=== PATIENT | male | born 1930 | race Caucasian/White ===

== ENCOUNTER 2017-12-26 14:12 | Emergency (ER) | payer MEDICARE ==
[~2017-12-26 14:12] MED LIST: ATEN25TA PO; CYCL10TA7 PO; FURO20TA4 PO; GABA-531 PO; GLIP5TAB11 PO; LEVO25TA54 PO; METO5TAB7 PO; ONDA4TAB4 PO; PANT40TA25 PO; RAMI10CA23 PO; RIVA20TA PO; ZOLP5TAB8 PO
[2017-12-26 14:43] LABS: BASOPHILS % (AUTO) 0.2 % (0.0-5.0); EOSINOPHILS % (AUTO) 0.6 % (0.0-8.0); HEMATOCRIT 37.5 % (42-54); LYMPHOCYTES % (AUTO) 4.2 % (21.0-51.0); MEAN CORPUSCULAR HEMOGLOBIN 30.4 pg (27.0-33.0); MEAN CORPUSCULAR HGB CONC 33.4 g/dL (32.0-36.0); MEAN CORPUSCULAR VOLUME 90.9 fL (79-99); PLATELET COUNT (AUTO) 191 K/uL (130-400); RED BLOOD CELL COUNT(AUTO) 4.13 MIL/uL (4.50-6.20); RED CELL DISTRIBUTION WIDTH 13.6 % (11.0-15.5); WHITE BLOOD COUNT (AUTO) 7.8 K/uL (4.8-10.8)
[2017-12-26 14:49] LABS: POTASSIUM 3.5 mmol/L (3.5-5.1)
[2017-12-26 14:53] LABS: INR 1.34 (0.85-1.15); PARTIAL THROMBOPLASTIN TIME 37.1 SEC (26.3-35.5)
[2017-12-26 14:55] LABS: ALBUMIN 3.3 g/dL (3.5-5.0); BILIRUBIN,TOTAL 0.5 mg/dL (0.2-1.0); TOTAL PROTEIN, SERUM 6.6 g/dL (6.0-8.3)
== END 2017-12-26 16:25 | disposition home or self-care (01) ==
LOC: EDH 14:12
DX: S00.03XA Contusion of scalp, initial encounter (principal); I10 Essential (primary) hypertension; E78.5 Hyperlipidemia, unspecified; E07.9 Disorder of thyroid, unspecified; I48.91 Unspecified atrial fibrillation; E11.9 Type 2 diabetes mellitus without complications; Z88.6 Allergy status to analgesic agent; Z88.1 Allergy status to other antibiotic agents; W18.39XA Other fall on same level, initial encounter; Y93.01 Activity, walking, marching and hiking; Y92.89 Other specified places as the place of occurrence of the external cause; Y99.8 Other external cause status
CPT/HCPCS: 36415; 70450; 72125; 80053; 82550; 84484; 85025; 85610; 85730; 93005

== ENCOUNTER 2018-03-10 08:01 | Inpatient (IN) | payer MEDICARE ==
[~2018-03-10] VITALS: Ht 175.3 cm; Wt 78.2 kg
[2018-03-10] MEDS ORDERED: CEFTRIAXONE SODIUM 2 GM VIAL ONE (08:35)
[2018-03-10] MEDS ORDERED: SODIUM CHLORIDE 0.9% 1000ML 1,000 ML IV ONE ×2 (08:35→13:59)
[2018-03-10] MEDS ORDERED: ACETAMINOPHEN EXTRA STRENGTH 500 MG TABLET ONE (08:35)
[2018-03-10] MEDS ORDERED: ONDANSETRON HCL MDV 20ML 2 MG/ML VIAL ONE (08:35)
[2018-03-10 08:47] LABS: BASOPHILS % (AUTO) 0.1 % (0.0-5.0); EOSINOPHILS % (AUTO) 0.1 % (0.0-8.0); HEMATOCRIT 37.8 % (42-54); LYMPHOCYTES % (AUTO) 2.5 % (21.0-51.0); MEAN CORPUSCULAR HEMOGLOBIN 29.5 pg (27.0-33.0); MEAN CORPUSCULAR HGB CONC 33.3 g/dL (32.0-36.0); MEAN CORPUSCULAR VOLUME 88.6 fL (79-99); MONOCYTES % (AUTO) 8.7 % (3.0-13.0); NEUTROPHILS % (AUTO) 88.6 % (40.0-77.0); PLATELET COUNT (AUTO) 158 K/uL (130-400); RED BLOOD CELL COUNT(AUTO) 4.27 MIL/uL (4.50-6.20); RED CELL DISTRIBUTION WIDTH 13.5 % (11.0-15.5); WHITE BLOOD COUNT (AUTO) 9.2 K/uL (4.8-10.8)
[2018-03-10 08:48] LABS: POTASSIUM 3.9 mmol/L (3.5-5.1)
[2018-03-10 08:51] LABS: INR 1.05 (0.85-1.15); PARTIAL THROMBOPLASTIN TIME 28.7 SEC (26.3-35.5)
[2018-03-10 09:17] LABS: APPEARANCE,URINE Clear (CLEAR); BILIRUBIN,URINE Negative (NEGATIVE); COLOR,URINE Yellow (YELLOW); GLUCOSE, URINE (UA) Negative (NEGATIVE); KETONES,URINE Negative (NEGATIVE); LEUKOCYTE ESTERASE ,URINE Negative (NEGATIVE); NITRATE,URINE Negative (NEGATIVE); OCCULT BLOOD,URINE Negative (NEGATIVE); PROTEIN,URINE Negative (NEGATIVE)
[2018-03-10] MEDS ORDERED: VANCOMYCIN 1.25 GM in SODIUM CHLORIDE 0.9% 250 ML IV SCH (10:00)
[2018-03-10] MEDS ORDERED: ACETAMINOPHEN-CODEINE 300/30MG TAB PO PRN (11:45)
[2018-03-10] MEDS ORDERED: MORPHINE SULFATE 2 MG/ML 1ML SYG IV PRN (11:45)
[2018-03-10] MEDS ORDERED: MAG HYDROX/AL HYDROX/SIMETH ES 30 ML SUSP UDCUP PO PRN (11:45)
[2018-03-10] MEDS: METRONIDAZOLE 500MG/100ML BAG 100 ML IV SCH (11:45)
[2018-03-10] MEDS ORDERED: ONDANSETRON HCL 4 MG/2 ML VIAL IV PRN (11:45)
[2018-03-10] MEDS ORDERED: GUAIFENESIN-DM 200/20 MG 10 ML PO PRN (11:45)
[2018-03-10] MEDS ORDERED: ACETAMINOPHEN 325 MG TAB PO PRN ×2 (11:45)
[2018-03-10] MEDS ORDERED: MEROPENEM 500MG+NS 50ML 50 ML IV SCH (11:45)
[2018-03-10] MEDS: MEROPENEM 500 MG VIAL IVP SCH ×2 (12:00→20:00)
[2018-03-10 12:46] LABS: ALBUMIN 3.3 g/dL (3.5-5.0); BILIRUBIN,DIRECT 0.2 mg/dL (0.0-0.3); BILIRUBIN,TOTAL 0.6 mg/dL (0.2-1.0); TOTAL PROTEIN, SERUM 6.3 g/dL (6.0-8.3)
[2018-03-10] MEDS ORDERED: MEROPENEM 500 MG VIAL ONE ×2 (13:58→22:37)
[2018-03-10] MEDS ORDERED: SODIUM CHLORIDE 0.9% 50 ML IV ONE (13:59)
[2018-03-10] MEDS ORDERED: METRONIDAZOLE 500MG/100ML BAG 100 ML ONE (15:14)
[2018-03-10] MEDS: SODIUM CHLORIDE 0.9% 1000ML 1,000 ML IV SCH (21:43)
[2018-03-10 23:15] VITALS: BP 145/53
[2018-03-11] MEDS: SODIUM CHLORIDE 0.9% 1000ML 1,000 ML IV SCH (00:06)
[2018-03-11] MEDS: METRONIDAZOLE 500MG/100ML BAG 100 ML IV SCH ×4 (00:06→20:30)
[2018-03-11] MEDS ORDERED: POTA10TA14 PO (02:05)
[2018-03-11 03:48] VITALS: BP 86/56
[2018-03-11] MEDS: MEROPENEM 500 MG VIAL IVP SCH ×3 (04:11→20:30)
[2018-03-11 06:03] LABS: HEMATOCRIT 30.4 % (42-54); MEAN CORPUSCULAR HEMOGLOBIN 31.3 pg (27.0-33.0); MEAN CORPUSCULAR HGB CONC 35.4 g/dL (32.0-36.0); MEAN CORPUSCULAR VOLUME 88.4 fL (79-99); PLATELET COUNT (AUTO) 133 K/uL (130-400); RED BLOOD CELL COUNT(AUTO) 3.44 MIL/uL (4.50-6.20); RED CELL DISTRIBUTION WIDTH 13.6 % (11.0-15.5); WHITE BLOOD COUNT (AUTO) 8.7 K/uL (4.8-10.8)
[2018-03-11 06:08] LABS: CREATININE 1.1 mg/dL (0.5-1.5); POTASSIUM 3.7 mmol/L (3.5-5.1)
[2018-03-11 08:00] VITALS: BP 100/51
[2018-03-11] MEDS: PANTOPRAZOLE SODIUM 40 MG TABLET.DR PO SCH (08:55)
[2018-03-11] MEDS ORDERED: DEXTROSE 50%-WATER 50 ML DISP.SYRIN IV PRN (09:45)
[2018-03-11] MEDS ORDERED: GLUCAGON 1MG KIT 1 MG ML IM PRN (09:45)
[2018-03-11] MEDS ORDERED: GABAPENTIN 300 MG CAPSULE PO PRN (10:30)
[2018-03-11] MEDS: INSULIN HUMULIN R 100 UNIT/ML 3ML SQ SCH ×3 (11:30→20:58)
[2018-03-11 12:00] VITALS: BP 101/56
[2018-03-11 16:00] VITALS: BP 85/56
[2018-03-11 19:55] VITALS: BP 108/59
[2018-03-11] MEDS: ZOLPIDEM TARTRATE 5 MG TAB PO SCH (20:30)
[2018-03-11] MEDS: CYCLOBENZAPRINE HCL 10 MG TABLET PO SCH (20:31)
[2018-03-11 23:20] VITALS: BP 97/57
[2018-03-12] MEDS: METRONIDAZOLE 500MG/100ML BAG 100 ML IV SCH ×3 (03:45→19:30)
[2018-03-12] MEDS: MEROPENEM 500 MG VIAL IVP SCH ×3 (03:45→19:30)
[2018-03-12 04:22] VITALS: BP 105/59
[2018-03-12] MEDS: INSULIN HUMULIN R 100 UNIT/ML 3ML SQ SCH ×4 (06:05→21:00)
[2018-03-12] MEDS: LEVOTHYROXINE 25 MCG TABLET PO SCH (06:36)
[2018-03-12 07:58] VITALS: BP 144/71
[2018-03-12] MEDS: RIVAROXABAN 20 MG TABLET PO SCH (08:24)
[2018-03-12] MEDS: LISINOPRIL 40 MG TABLET PO SCH (08:26)
[2018-03-12] MEDS: PANTOPRAZOLE SODIUM 40 MG TABLET.DR PO SCH (08:26)
[2018-03-12] MEDS: ATENOLOL 25 MG TABLET PO SCH (08:27)
[2018-03-12] MEDS: GLIPIZIDE 5 MG TABLET PO SCH (08:27)
[2018-03-12] MEDS: FUROSEMIDE 20 MG TABLET PO SCH (08:28)
[2018-03-12] MEDS: POTASSIUM CHLORIDE 10 MEQ/TAB.SA PO SCH (08:28)
[2018-03-12] MEDS ORDERED: LOPERAMIDE HCL 2 MG CAP PO PRN (10:00)
[2018-03-12 10:15] LABS: HEMATOCRIT 32.7 % (42-54); MEAN CORPUSCULAR HEMOGLOBIN 30.1 pg (27.0-33.0); MEAN CORPUSCULAR HGB CONC 34.2 g/dL (32.0-36.0); MEAN CORPUSCULAR VOLUME 88.2 fL (79-99); NUCLEATED RED BLOOD CELLS 0.1 % (0.0-0.19); PLATELET COUNT (AUTO) 130 K/uL (130-400); RED BLOOD CELL COUNT(AUTO) 3.71 MIL/uL (4.50-6.20); RED CELL DISTRIBUTION WIDTH 13.5 % (11.0-15.5); WHITE BLOOD COUNT (AUTO) 6.1 K/uL (4.8-10.8)
[2018-03-12 12:00] VITALS: BP 122/61
[2018-03-12 16:00] VITALS: BP 116/77
[2018-03-12] MEDS: LOPERAMIDE HCL 2 MG CAP PO PRN (18:05)
[2018-03-12 19:58] VITALS: BP 126/72
[2018-03-12] MEDS: CYCLOBENZAPRINE HCL 10 MG TABLET PO SCH (21:20)
[2018-03-12] MEDS: ZOLPIDEM TARTRATE 5 MG TAB PO SCH (21:20)
[2018-03-13 00:01] VITALS: BP 128/90
[2018-03-13] MEDS: LOPERAMIDE HCL 2 MG CAP PO PRN (01:25)
[2018-03-13] MEDS: MEROPENEM 500 MG VIAL IVP SCH ×2 (03:47→11:49)
[2018-03-13] MEDS: METRONIDAZOLE 500MG/100ML BAG 100 ML IV SCH ×2 (03:47→11:49)
[2018-03-13 04:03] VITALS: BP 131/70
[2018-03-13] MEDS: INSULIN HUMULIN R 100 UNIT/ML 3ML SQ SCH ×2 (06:03→11:30)
[2018-03-13] MEDS: LEVOTHYROXINE 25 MCG TABLET PO SCH (06:43)
[2018-03-13 08:00] VITALS: BP 119/66
[2018-03-13] MEDS: GLIPIZIDE 5 MG TABLET PO SCH (09:03)
[2018-03-13] MEDS: LISINOPRIL 40 MG TABLET PO SCH (09:03)
[2018-03-13] MEDS: RIVAROXABAN 20 MG TABLET PO SCH (09:03)
[2018-03-13] MEDS: ATENOLOL 25 MG TABLET PO SCH (09:04)
[2018-03-13] MEDS: FUROSEMIDE 20 MG TABLET PO SCH (09:04)
[2018-03-13] MEDS: POTASSIUM CHLORIDE 10 MEQ/TAB.SA PO SCH (09:05)
[2018-03-13] MEDS: PANTOPRAZOLE SODIUM 40 MG TABLET.DR PO SCH (09:05)
[2018-03-13] MEDS ORDERED: METR500T PO (10:05)
[2018-03-13] MEDS ORDERED: DOXY100T2 PO (10:05)
[2018-03-13 12:00] VITALS: BP 126/71
== END 2018-03-13 13:50 | disposition home or self-care (01) | DRG 391 ==
LOC: EDH 08:01 → OBSVTOIN 11:43 → EDHIP 11:43 → 3AH 22:28
PROVIDERS: ADMIT Family Medicine; ATTEND Family Medicine
DX: K52.9 Noninfective gastroenteritis and colitis, unspecified (principal); J18.9 Pneumonia, unspecified organism; D68.69 Other thrombophilia; E11.69 Type 2 diabetes mellitus with other specified complication; I48.2 Chronic atrial fibrillation; I48.91 Unspecified atrial fibrillation; I10 Essential (primary) hypertension; E03.9 Hypothyroidism, unspecified; E78.5 Hyperlipidemia, unspecified; K21.9 Gastro-esophageal reflux disease without esophagitis; Z79.01 Long term (current) use of anticoagulants; Z88.8 Allergy status to other drugs, medicaments and biological substances; Z82.49 Family history of ischemic heart disease and other diseases of the circulatory system
CPT/HCPCS: 36415; 71045; 71250; 74176; 80048; 80076; 81003; 82948; 83605; 84484; 85025; 85027; 85610; 85730; 87040; 87046; 87177; 87324; 87804; 93005; A4218; J0696; J1815; J2185; J3370; J3490; J7030

== ENCOUNTER 2018-04-12 05:39 | Day surgery (SDC) | payer MEDICARE ==
[~2018-04-12] VITALS: Ht 170.2 cm; Wt 74.6 kg
[~2018-04-12 05:39] MED LIST changes: +POTA10TA14 PO
[2018-04-12] MEDS ORDERED: SODIUM CHLORIDE 0.9% 1000ML 1,000 ML IV ONE (05:51)
[2018-04-12 06:10] VITALS: BP 101/64
[2018-04-12 07:26] VITALS: BP 81/49
== END 2018-04-12 08:09 | disposition home or self-care (01) ==
LOC: DAH 05:39 → ENDO 05:39
PROVIDERS: ATTEND Internal Medicine Gastroenterology
DX: K29.50 Unspecified chronic gastritis without bleeding (principal); K31.7 Polyp of stomach and duodenum; K21.9 Gastro-esophageal reflux disease without esophagitis; I10 Essential (primary) hypertension; M54.30 Sciatica, unspecified side; Z85.46 Personal history of malignant neoplasm of prostate; Z86.010 Personal history of colon polyps; I48.91 Unspecified atrial fibrillation; E11.9 Type 2 diabetes mellitus without complications; E03.9 Hypothyroidism, unspecified; Z98.890 Other specified postprocedural states; Z90.49 Acquired absence of other specified parts of digestive tract; Z88.8 Allergy status to other drugs, medicaments and biological substances; K64.0 First degree hemorrhoids; K44.9 Diaphragmatic hernia without obstruction or gangrene; K22.0 Achalasia of cardia
CPT/HCPCS: 43239; 82948 ×2; 88305; 88312; 93005; A4606; J7030

== ENCOUNTER → 2018-11-24 | Outpatient (CLI) | payer MEDICARE ==
[~2018-11-24] MED LIST changes: +IOHEXOL-350 75 ML VIAL IV ONE; -RAMI10CA23 PO; +RAMI10CA69 PO
== END | disposition home or self-care (01) ==
LOC: RAH 07:56
PROVIDERS: ATTEND Internal Medicine Critical Care Medicine
DX: K59.09 Other constipation (principal); N28.1 Cyst of kidney, acquired
CPT/HCPCS: 74177; Q9967

== ENCOUNTER 2019-09-26 19:13 | Emergency (ER) | payer MEDICARE ==
[~2019-09-26 19:13] MED LIST changes: -IOHEXOL-350 75 ML VIAL IV ONE
[2019-09-26 19:30] LABS: EOSINOPHILS % (AUTO) 0.2 % (0.0-8.0); HEMATOCRIT 35.9 % (42-54); LYMPHOCYTES % (AUTO) 4.2 % (21.0-51.0); MEAN CORPUSCULAR HEMOGLOBIN 29.5 pg (27.0-33.0); MEAN CORPUSCULAR HGB CONC 33.1 g/dL (32.0-36.0); MEAN CORPUSCULAR VOLUME 89.3 fL (79-99); MONOCYTES % (AUTO) 7.3 % (3.0-13.0); NEUTROPHILS % (AUTO) 88.3 % (40.0-77.0); PLATELET COUNT (AUTO) 142 K/uL (130-400); RED BLOOD CELL COUNT(AUTO) 4.02 MIL/uL (4.50-6.20); RED CELL DISTRIBUTION WIDTH 13.7 % (11.0-15.5); WHITE BLOOD COUNT (AUTO) 11.1 K/uL (4.8-10.8)
[2019-09-26 19:46] LABS: CREATININE 0.9 mg/dL (0.5-1.5); INR 1.4 (0.85-1.15); PARTIAL THROMBOPLASTIN TIME 35.3 SEC (26.3-35.5); POTASSIUM 3.3 mmol/L (3.5-5.1); PROTHROMBIN TIME 14.5 SEC (9.6-11.6)
[2019-09-26] MEDS ORDERED: ASPIRIN 325 MG TABLET ONE (19:46)
[2019-09-26 19:49] LABS: ALBUMIN 3.4 g/dL (3.5-5.0); BILIRUBIN,TOTAL 0.4 mg/dL (0.2-1.0); TOTAL PROTEIN, SERUM 6.8 g/dL (6.0-8.3)
== END 2019-09-26 21:19 | disposition left against medical advice (07) ==
LOC: EDH 19:13
DX: I11.0 Hypertensive heart disease with heart failure (principal); I50.9 Heart failure, unspecified; I48.91 Unspecified atrial fibrillation; E11.9 Type 2 diabetes mellitus without complications; R07.89 Other chest pain; E78.5 Hyperlipidemia, unspecified; E07.9 Disorder of thyroid, unspecified; Z88.5 Allergy status to narcotic agent; Z88.2 Allergy status to sulfonamides; Z88.1 Allergy status to other antibiotic agents
CPT/HCPCS: 36415; 71045; 80053; 82550; 84484; 85025; 85610; 85730; 93005

== ENCOUNTER → 2020-07-24 | Outpatient (CLI) | payer MEDICARE ==
[~2020-07-24] MED LIST changes: -PANT40TA25 PO; +PANT40TA54 PO
== END | disposition home or self-care (01) ==
LOC: RAH 10:00
PROVIDERS: ATTEND Emergency Medicine
DX: M75.41 Impingement syndrome of right shoulder (principal)
CPT/HCPCS: 73030; 73221

== ENCOUNTER 2021-03-03 09:19 | Inpatient (IN) | payer MEDICARE ==
[~2021-03-03] VITALS: Ht 175.3 cm; Wt 68.1 kg
[~2021-03-03 09:19] MED LIST changes: +CYCL-309 PO; -CYCL10TA7 PO
[2021-03-03 09:57] LABS: BASOPHILS % (AUTO) 0.2 % (0.0-5.0); EOSINOPHILS % (AUTO) 0.2 % (0.0-8.0); HEMATOCRIT 36.7 % (42-54); LYMPHOCYTES % (AUTO) 1.3 % (21.0-51.0); MEAN CORPUSCULAR HEMOGLOBIN 28.2 pg (27.0-33.0); MEAN CORPUSCULAR HGB CONC 32.2 g/dL (32.0-36.0); MEAN CORPUSCULAR VOLUME 87.8 fL (79-99); NEUTROPHILS % (AUTO) 93.9 % (40.0-77.0); PLATELET COUNT (AUTO) 150 K/uL (130-400); RED BLOOD CELL COUNT(AUTO) 4.18 MIL/uL (4.50-6.20); RED CELL DISTRIBUTION WIDTH 14.4 % (11.0-15.5); WHITE BLOOD COUNT (AUTO) 12.8 K/uL (4.8-10.8)
[2021-03-03] MEDS ORDERED: ONDANSETRON 4MG INJ ONE (09:57)
[2021-03-03] MEDS ORDERED: PANTOPRAZOLE 40 MG/VIAL ONE (09:57)
[2021-03-03 10:04] LABS: CARBON DIOXIDE 28 mmol/L (21-32); CHLORIDE 102 mmol/L (101-111); GLOMERULAR FILTR. RATE CALC 75 mL/min (>60); GLUCOSE,RANDOM 153 mg/dL (70-105); POTASSIUM 4.2 mmol/L (3.5-5.1); SODIUM SERUM 139 mmol/L (136-145); UREA NITROGEN, BLOOD 17 mg/dL (7-18)
[2021-03-03 10:08] LABS: INR 1.33 (0.85-1.15); PARTIAL THROMBOPLASTIN TIME 25.9 SEC (26.3-35.5); PROTHROMBIN TIME 13.6 SEC (9.6-11.6)
[2021-03-03 10:15] LABS: ALANINE AMINOTRANSFERASE 25 U/L (12-78); ALBUMIN 3.2 g/dL (3.5-5.0); ASPARTATE AMINOTRANSFERASE 22 U/L (10-37); BILIRUBIN,TOTAL 0.6 mg/dL (0.2-1.0); CREATINE KINASE, TOTAL 28 U/L (21-232); LIPASE 62 U/L (114-286); MYOGLOBIN 70 ng/mL (10-92); TOTAL PROTEIN, SERUM 6.2 g/dL (6.0-8.3); TROPONIN I < 0.04 ng/mL (0.00-0.06)
[2021-03-03] MEDS ORDERED: AZITHROMYCIN 500MG+NS 250ML 250 ML IV ONE (10:18)
[2021-03-03] MEDS ORDERED: CEFTRIAXONE 1G VIAL ONE (10:18)
[2021-03-03] MEDS ORDERED: 0.9% NACL 250ML 500 ML IV ONE (11:42)
[2021-03-03] MEDS: CEFTRIAXONE 1G VIAL IV SCH (14:00)
[2021-03-03] MEDS: AZITHROMYCIN 500MG+NS 250ML 250 ML IV SCH (14:00)
[2021-03-03] MEDS ORDERED: ONDANSETRON 4MG INJ IV PRN (14:00)
[2021-03-03] MEDS: BENZONATATE 100 MG CAPSULE PO SCH ×2 (14:00→21:38)
[2021-03-03] MEDS ORDERED: LACTULOSE 20 GM/30 ML UDCUP PO PRN (14:00)
[2021-03-03] MEDS ORDERED: ACETAMINOPHEN WITH CODEINE 1 TAB TAB PO PRN ×2 (14:00)
[2021-03-03] MEDS ORDERED: ACETAMINOPHEN 325 MG TAB PO PRN ×2 (14:00)
[2021-03-03 14:33] LABS: HEMOGLOBIN A1C 6.6 % (4.0-6.0)
[2021-03-03 15:29] LABS: APPEARANCE,URINE Clear (CLEAR); BILIRUBIN,URINE Negative (NEGATIVE); COLOR,URINE Yellow (YELLOW); GLUCOSE, URINE (UA) Negative (NEGATIVE); KETONES,URINE Negative (NEGATIVE); LEUKOCYTE ESTERASE ,URINE Negative (NEGATIVE); NITRATE,URINE Negative (NEGATIVE); OCCULT BLOOD,URINE Negative (NEGATIVE); PROTEIN,URINE Negative (NEGATIVE); UROBILINOGEN,URINE 0.2 mg/dL (0.2-1.0)
[2021-03-03] MEDS ORDERED: IPRATROPIUM/ALBUTEROL SULFATE 3 ML SOLUTION IH ONE (17:22)
[2021-03-03] MEDS ORDERED: IPRATROPIUM/ALBUTEROL SULFATE 3 ML SOLUTION IH SCH (18:00)
[2021-03-03 21:30] VITALS: BP 133/71
[2021-03-03] MEDS: METOPROLOL TARTRATE 25 MG TAB PO SCH (21:38)
[2021-03-03] MEDS: FAMOTIDINE 20MG TAB PO SCH (21:38)
[2021-03-03] MEDS: FUROSEMIDE 20 MG TABLET PO SCH (21:42)
[2021-03-03] MEDS ORDERED: METH-386 PO (22:24)
[2021-03-03] MEDS ORDERED: SENN-216 PO (22:24)
[2021-03-03] MEDS ORDERED: SENN-2 PO (22:25)
[2021-03-03] MEDS ORDERED: ALEN70TA80 PO (22:25)
[2021-03-03] MEDS ORDERED: VITAMIN D2 PO (22:25)
[2021-03-03] MEDS: HYDROXYZINE 25 MG TABLET PO SCH (22:57)
[2021-03-04] VITALS: BP 92/51
[2021-03-04 04:00] VITALS: BP 110/55
[2021-03-04 05:41] LABS: BASOPHILS % (AUTO) 0.2 % (0.0-5.0); EOSINOPHILS % (AUTO) 1.3 % (0.0-8.0); HEMATOCRIT 33.3 % (42-54); LYMPHOCYTES % (AUTO) 4.8 % (21.0-51.0); MEAN CORPUSCULAR HEMOGLOBIN 27.3 pg (27.0-33.0); MEAN CORPUSCULAR HGB CONC 31.2 g/dL (32.0-36.0); MEAN CORPUSCULAR VOLUME 87.4 fL (79-99); MONOCYTES % (AUTO) 5.5 % (3.0-13.0); NEUTROPHILS % (AUTO) 87.6 % (40.0-77.0); PLATELET COUNT (AUTO) 135 K/uL (130-400); RED BLOOD CELL COUNT(AUTO) 3.81 MIL/uL (4.50-6.20); RED CELL DISTRIBUTION WIDTH 14.5 % (11.0-15.5); WHITE BLOOD COUNT (AUTO) 12.6 K/uL (4.8-10.8)
[2021-03-04 08:16] VITALS: BP 121/54
[2021-03-04] MEDS: METOPROLOL TARTRATE 25 MG TAB PO SCH ×2 (08:31→19:51)
[2021-03-04] MEDS: BENZONATATE 100 MG CAPSULE PO SCH ×3 (08:31→19:50)
[2021-03-04] MEDS: METHIMAZOLE 10 MG TAB PO SCH (08:32)
[2021-03-04] MEDS: PANTOPRAZOLE 40 MG TAB DR PO SCH (08:33)
[2021-03-04] MEDS: FAMOTIDINE 20MG TAB PO SCH ×2 (08:35→19:51)
[2021-03-04] MEDS: LINAGLIPTIN 5 MG TABLET PO SCH (08:38)
[2021-03-04] MEDS ORDERED: FUROSEMIDE 40 MG TABLET PO SCH (09:00)
[2021-03-04] MEDS ORDERED: RIVAROXABAN 20 MG TABLET PO SCH (09:00)
[2021-03-04 12:00] VITALS: BP 102/51
[2021-03-04] MEDS: FUROSEMIDE 20 MG TABLET PO SCH (16:00)
[2021-03-04 16:46] VITALS: BP 141/72
[2021-03-04 19:26] VITALS: BP 156/73
[2021-03-04] MEDS: HYDROXYZINE 25 MG TABLET PO SCH (19:41)
[2021-03-04] MEDS: AZITHROMYCIN 500MG+NS 250ML 250 ML IV SCH (19:43)
[2021-03-04] MEDS: CEFTRIAXONE 1G VIAL IV SCH (19:43)
[2021-03-04] MEDS: CYCLOBENZAPRINE HCL 10 MG TABLET PO SCH (19:51)
[2021-03-05 00:17] VITALS: BP 120/53
[2021-03-05 04:00] VITALS: BP 114/56
[2021-03-05 05:19] LABS: BASOPHILS % (AUTO) 0.3 % (0.0-5.0); EOSINOPHILS % (AUTO) 4.8 % (0.0-8.0); HEMATOCRIT 29.6 % (42-54); LYMPHOCYTES % (AUTO) 7.7 % (21.0-51.0); MEAN CORPUSCULAR HEMOGLOBIN 27.2 pg (27.0-33.0); MEAN CORPUSCULAR HGB CONC 31.4 g/dL (32.0-36.0); MEAN CORPUSCULAR VOLUME 86.5 fL (79-99); MONOCYTES % (AUTO) 8.1 % (3.0-13.0); NEUTROPHILS % (AUTO) 78.5 % (40.0-77.0); PLATELET COUNT (AUTO) 129 K/uL (130-400); RED BLOOD CELL COUNT(AUTO) 3.42 MIL/uL (4.50-6.20); RED CELL DISTRIBUTION WIDTH 14.4 % (11.0-15.5); WHITE BLOOD COUNT (AUTO) 8.7 K/uL (4.8-10.8)
[2021-03-05 08:08] VITALS: BP 93/50
[2021-03-05] MEDS: FAMOTIDINE 20MG TAB PO SCH ×2 (09:00→21:30)
[2021-03-05] MEDS ORDERED: NON-FORMULARY MEDICATION 1 EACH (Methimazole 5 MG) PO SCH (09:00)
[2021-03-05] MEDS: METHIMAZOLE 10 MG TAB PO SCH (09:00)
[2021-03-05 09:39] LABS: ALBUMIN 2.4 g/dL (3.5-5.0); BILIRUBIN,TOTAL 0.6 mg/dL (0.2-1.0); CREATININE 0.9 mg/dL (0.5-1.5); POTASSIUM 3.1 mmol/L (3.5-5.1); TOTAL PROTEIN, SERUM 5.3 g/dL (6.0-8.3)
[2021-03-05] MEDS ORDERED: KCL 20 MEQ ERTAB PO SCH (10:00)
[2021-03-05] MEDS ORDERED: CEFD300C3 PO (10:22)
[2021-03-05] MEDS: LINAGLIPTIN 5 MG TABLET PO SCH (11:37)
[2021-03-05] MEDS: BENZONATATE 100 MG CAPSULE PO SCH ×3 (11:37→21:30)
[2021-03-05] MEDS: PANTOPRAZOLE 40 MG TAB DR PO SCH (11:39)
[2021-03-05] MEDS: LISINOPRIL 20 MG TABLET PO SCH (11:40)
[2021-03-05] MEDS: METOPROLOL TARTRATE 25 MG TAB PO SCH ×2 (11:42→21:29)
[2021-03-05] MEDS: FUROSEMIDE 40 MG TABLET PO SCH (11:45)
[2021-03-05 12:13] VITALS: BP 127/72
[2021-03-05 16:00] VITALS: BP 133/69
[2021-03-05] MEDS: CEFTRIAXONE 1G VIAL IV SCH (16:52)
[2021-03-05] MEDS: AZITHROMYCIN 500MG+NS 250ML 250 ML IV SCH (16:52)
[2021-03-05] MEDS: FUROSEMIDE 20 MG TABLET PO SCH (16:52)
[2021-03-05] MEDS ORDERED: SENNOSIDES 8.6 MG TABLET PO SCH (17:09)
[2021-03-05] MEDS: DOCUSATE SODIUM 100 MG CAP PO SCH (19:39)
[2021-03-05 20:00] VITALS: BP 116/60
[2021-03-05] MEDS: CYCLOBENZAPRINE HCL 10 MG TABLET PO SCH (21:29)
[2021-03-05] MEDS: HYDROXYZINE 25 MG TABLET PO SCH (21:34)
[2021-03-06] VITALS: BP 98/46
[2021-03-06] MEDS ORDERED: LATA2.5D15 OU (03:05)
[2021-03-06 04:00] VITALS: BP 95/44
[2021-03-06 05:12] LABS: BASOPHILS % (AUTO) 0.5 % (0.0-5.0); EOSINOPHILS % (AUTO) 6.3 % (0.0-8.0); HEMATOCRIT 29.1 % (42-54); LYMPHOCYTES % (AUTO) 7.7 % (21.0-51.0); MEAN CORPUSCULAR HEMOGLOBIN 27.3 pg (27.0-33.0); MEAN CORPUSCULAR HGB CONC 31.6 g/dL (32.0-36.0); MEAN CORPUSCULAR VOLUME 86.4 fL (79-99); MONOCYTES % (AUTO) 9.3 % (3.0-13.0); NEUTROPHILS % (AUTO) 75.7 % (40.0-77.0); PLATELET COUNT (AUTO) 151 K/uL (130-400); RED BLOOD CELL COUNT(AUTO) 3.37 MIL/uL (4.50-6.20); RED CELL DISTRIBUTION WIDTH 14.3 % (11.0-15.5); WHITE BLOOD COUNT (AUTO) 6.5 K/uL (4.8-10.8)
[2021-03-06 05:29] LABS: CREATININE 0.9 mg/dL (0.5-1.5); POTASSIUM 3.9 mmol/L (3.5-5.1)
[2021-03-06 07:26] VITALS: BP 113/58
[2021-03-06] MEDS: BENZONATATE 100 MG CAPSULE PO SCH ×2 (08:57→14:39)
[2021-03-06] MEDS: FAMOTIDINE 20MG TAB PO SCH (08:57)
[2021-03-06] MEDS: LISINOPRIL 20 MG TABLET PO SCH (08:57)
[2021-03-06] MEDS: METOPROLOL TARTRATE 25 MG TAB PO SCH (08:57)
[2021-03-06] MEDS: LINAGLIPTIN 5 MG TABLET PO SCH (08:57)
[2021-03-06] MEDS: PANTOPRAZOLE 40 MG TAB DR PO SCH (08:57)
[2021-03-06] MEDS: DOCUSATE SODIUM 100 MG CAP PO SCH (08:58)
[2021-03-06] MEDS: FUROSEMIDE 40 MG TABLET PO SCH (08:58)
[2021-03-06] MEDS: METHIMAZOLE 10 MG TAB PO SCH (09:02)
[2021-03-06 11:06] VITALS: BP 101/58
[2021-03-06] MEDS: AZITHROMYCIN 500MG+NS 250ML 250 ML IV SCH (14:39)
[2021-03-06] MEDS: CEFTRIAXONE 1G VIAL IV SCH (14:39)
[2021-03-06 15:58] VITALS: BP 129/70
[2021-03-06] MEDS: FUROSEMIDE 20 MG TABLET PO SCH (17:25)
[2021-03-11] MEDS ORDERED: ALENDRONATE SODIUM 35 MG TAB PO SCH (09:00)
[2021-03-11] MEDS ORDERED: ERGOCALCIFEROL (VITAMIN D2) 50,000 UNIT CAPSULE PO SCH (09:00)
[2021-06-21] MEDS ORDERED: POTA-79 PO (00:14)
[2021-06-21] MEDS ORDERED: ATEN25TA PO (00:14)
[2021-06-24] MEDS ORDERED: DOXY100T2 PO (07:07)
== END 2021-03-06 21:45 | disposition home or self-care (01) | DRG 871 ==
LOC: EDH 09:19 → EDHIP 13:58 → 3AH 20:37
PROVIDERS: ADMIT Internal Medicine; ATTEND Internal Medicine
DX: A41.9 Sepsis, unspecified organism (principal); J18.9 Pneumonia, unspecified organism; J96.01 Acute respiratory failure with hypoxia; I50.9 Heart failure, unspecified; J84.112 Idiopathic pulmonary fibrosis; I48.91 Unspecified atrial fibrillation; E11.9 Type 2 diabetes mellitus without complications; I11.0 Hypertensive heart disease with heart failure; E05.90 Thyrotoxicosis, unspecified without thyrotoxic crisis or storm; Z20.822 Contact with and (suspected) exposure to COVID-19; Z88.5 Allergy status to narcotic agent; Z88.8 Allergy status to other drugs, medicaments and biological substances; Z79.01 Long term (current) use of anticoagulants; Z79.899 Other long term (current) drug therapy; Z99.81 Dependence on supplemental oxygen; Z82.49 Family history of ischemic heart disease and other diseases of the circulatory system
CPT/HCPCS: 36415; 71045; 71250; 74176; 80048; 80053; 81003; 82550; 82948; 83036; 83605; 83690; 83874; 83880; 84145; 84443; 84484; 85025; 85610; 85730; 86738; 86850; 86900; 86901; 87040; 87088; 87426; 87449; 93005; 94760; C9113; G0378; J0456; J0696; J2405; J7050; U0003

== ENCOUNTER → 2021-12-31 | Outpatient (CLI) | payer MEDICARE ==
[~2021-12-31] MED LIST changes: +DOXY100T2 PO; -GABA-531 PO; +GADOTERATE MEGLUMINE 10 MMOL/20 ML VIAL IV ONE; +LATA2.5D15 OU; -LEVO25TA54 PO; -METO5TAB7 PO; -ONDA4TAB4 PO; +POTA-79 PO; -POTA10TA14 PO; +SENN-2 PO; +SENN-216 PO; +VITAMIN D2 PO; -ZOLP5TAB8 PO
== END | disposition home or self-care (01) ==
LOC: RAH 14:48
PROVIDERS: ATTEND Anesthesiology Pain Medicine
DX: M47.26 Other spondylosis with radiculopathy, lumbar region (principal); M51.37 Other intervertebral disc degeneration, lumbosacral region; M48.07 Spinal stenosis, lumbosacral region; Z98.890 Other specified postprocedural states
CPT/HCPCS: 72158; A9575